=== PATIENT | female | born 1955 | race Caucasian/White ===

== ENCOUNTER → 2016-05-22 | Outpatient (CLI) | payer BC ==
[2016-05-22 16:31] LABS: CHLORIDE,CL 107 mmol/L (98-110); SODIUM,NA 140 mmol/L (136-146)
== END | disposition home or self-care (01) ==
LOC: MW.CHIM 15:50
PROVIDERS: ATTEND Internal Medicine
DX: E11.65 Type 2 diabetes mellitus with hyperglycemia (principal); I10 Essential (primary) hypertension; E78.5 Hyperlipidemia, unspecified
CPT/HCPCS: 36415; 80053; 80061; 82044; 83036; 84439; 84443; 85025

== ENCOUNTER 2017-10-01 08:50 | Emergency (ER) | payer BC ==
[2017-10-01] MEDS ORDERED: Sodium Chloride 0.9% 2.5 ML Syringe FLUSH PRN (08:57)
[2017-10-01] MEDS ORDERED: Sodium Chloride 0.9% 10 ML Syringe FLUSH PRN (08:57)
--- NOTE | 2017-10-01 08:59 | EDM.PDOC ---
ED HPI GENERAL MEDICAL PROBLEM - General Chief Complaint: General Stated Complaint: PT HASN'T BEEN ABLE TO WALK FOR THE PASTTHREE DAYS Time Seen by Provider: 10/01/17 08:56 - History of Present Illness INITIAL COMMENTS - FREE TEXT/NARRATIVE: HISTORY AND PHYSICAL: History of present illness: The patient is a 61-year-old female who follows in our clinics and has a history of diabetes for which she uses both oral hypoglycemics and insulin, as well as depression and anxiety for which she takes Zoloft and presents with with progressive weakness and inability to get around for the last 3 days and anorexia and poor by mouth intake. According to the and the patient she recently lost her mother and was out for at least 48 hours straight with her mother as she was dying and then proceeded to be involved with arrangements and other family commitments. According to the she hasn't slept more than a small amount in the last 3 days and she has had very little by mouth intake or hydration. He says that she has had 2 falls last evening due to progressive weakness but she did not pass out and he was right there to assist her. The patient says she did not pass out or black out and has no head neck or back pain and no extremity complaints. She says she is nauseated and has no appetite but has no abdominal pain. She's had no diarrhea no cough no chest pain or shortness of breath and no documented fevers at home but she did feel hot and thought she might have a temperature. The patient is not taking any medications at home. When the tells nursing that she can't walk it' s because of a global weakness not because of muscle or bone issues. He says that she can't even support herself and it is difficult for him to even get her to sit up and move around. He was concerned about her blood sugar because she has not been eating and she is still been taking her medications intermittently. It is not totally clear if she has been compliant with her meds. The patient has no other medical history and denies any discomfort muscle aches or pains or other systemic issues. Patient denies any suicidal ideation Review of systems: As per history of present illness and below otherwise all systems reviewed and negative. Past medical history: As per history of present illness and as reviewed below otherwise noncontributory. Surgical history: As per history of present illness and as reviewed below otherwise noncontributory. Social history: No reported history of drug or alcohol abuse. Family history: As per history of present illness and as reviewed below otherwise noncontributory. Physical exam: General: Well-developed well-nourished female who is nontoxic and speaks softly and with minimal answers all my evaluation. Majority of the history is from the as the patient is not very forthcoming about what has been going on. Her effect is very flat and intermittently she will smile. Vital signs are noted by me HEENT: Atraumatic, normocephalic, pupils reactive, negative for conjunctival pallor or scleral icterus, mucous membranes very dry throat clear, neck supple, nontender, trachea midline. There are no midline step-offs in his defects of the cervical spine and there are no palpable bony deformities or defects of the skull and no facial swelling is seen Lungs: Clear to auscultation but some bronchial breath sounds and crackles at the right base, breath sounds equal bilaterally, chest nontender. There is no wheezing or stridor and there are no palpable deformities of the chest wall or visual defects Heart: S1S2, regular rhythm slightly tachycardic rate of my evaluation Abdomen: Soft, nondistended, nontender. Negative for masses or hepatosplenomegaly. Negative for costovertebral tenderness. Pelvis: Stable nontender. No lateral hip tenderness Genitourinary: Deferred. Rectal: Deferred. Extremities: Atraumatic except for a very small abrasion at the left elbow and a very small abrasion at the lateral right knee without any surrounding soft tissue swelling ecchymosis or palpable bony deformities. The legs are, negative for cords or calf pain. Neurovascular unremarkable. Neuro: Awake, alert, oriented. Cranial nerves II through XII unremarkable. Cerebellum unremarkable.sensory unremarkable throughout. Exam nonfocal. Motor overall has global weakness with a 4/5 and a poor effort. Patient was able to transfer but needed assistance. Back: There are no midline step-offs tenderness defects of the thoracic or lumbar spine no posterior rib or pelvis tenderness and no visual evidence of any trauma Skin: Turgor is overall diminished but there are no rashes or lesions and no visible evidence of any trauma such as ecchymosis abrasions or erythema are seen from head to toe Diagnostics: Accu-Chek EKG CBC CMP UA hemoglobin A1c amylase and lipase TSH magnesium level serum ketones lactic acid CPK blood culture 2 urine culture CXR Therapeutics: IV O2 monitor IV fluids Zofran Tylenol In reviewing the computer the patient was last seen in the clinic with Dr. Van in May of this year and had a hemoglobin A1c of 6.8 1030: Patient is sitting up in bed and moving around. She has more energy in her face and the also states she is more interested and taking ice chips which she has already had a small cup of. She now has accepted a popsicle and is eating it. I'm continuing to monitor her testing results and we'll discuss all results with her and when available 1150: Patient continues to feel much improved and all testing results have been reviewed with the patient and at bedside. She is aware of the bump in her white blood cell count and that we have sent cultures of blood and urine and that she has a UTI. She also aware of her dehydration. Tells me that now she can relax and take care of herself and she is feeling that she can do that and move forward. She has tolerated fluids here. I will give her a dose of antibiotics here, she requested oral not IV meds here so she can go home. I will also give her prescription for home and advised her to monitor temperature and use Tylenol or ibuprofen for that. Advised her to follow-up with her provider in the clinic to reevaluate the symptoms and reasons to return. I have also told her to connect with her provider that she works with for her depression and anxiety so that she can address recent events; states that he feels comfortable taking her home Impression: Generalized weakness, dehydration, UTI, leukocytosis, generalized malaise and depression Definitive disposition and diagnosis as appropriate pending reevaluation and review of above. Generalized Pain Score (Numeric/FACES): 4 - Related Data Allergies Allergy/AdvReac Type Severity Reaction Status Date / Time No Known Allergies Allergy Verified 10/01/17 08:58 Home Meds: Home Meds Glimepiride [Amaryl] 4 mg PO BID 08/15/15 [History] Insulin Detemir [Levemir Flextouch] 30 units SUBCUT BEDTIME 08/15/15 [History] Sertraline HCl 100 mg PO DAILY 08/15/15 [History] metFORMIN HCl [Metformin HCl] 1 mg PO BIDMEALS 08/15/15 [History] Dulaglutide [Trulicity] 1.5 mg SQ WEEKLY 10/01/17 [History] Empagliflozin [Jardiance] 1 tab PO QAM 10/01/17 [History] Lisinopril 1 tab PO DAILY 10/01/17 [History] Past Medical History HEENT History: Reports: None Cardiovascular History: Reports: High Cholesterol Other Cardiovascular History: hx of htn, off meds now Respiratory History: Reports: None Gastrointestinal History: Reports: Colon Polyp, GERD Genitourinary History: Reports: None [employer] History: Reports: None Musculoskeletal History: Reports: None Neurological History: Reports: None Psychiatric History: Reports: Anxiety, Depression Endocrine/Metabolic History: Reports: Diabetes, Type II, Obesity/BMI 30+ Other Endocrine/Metabolic History: on insulin Hematologic History: Reports: None Immunologic History: Reports: None Oncologic (Cancer) History: Reports: Basal Cell Carcinoma Other Oncologic History: on thigh Dermatologic History: Reports: None - Past Surgical History Head Surgeries/Procedures: Reports: None HEENT Surgical History: Reports: None Cardiovascular Surgical History: Reports: None Respiratory Surgical History: Reports: None GI Surgical History: Reports: Appendectomy, Colonoscopy Female Surgical History: Reports: None Endocrine Surgical History: Reports: None Neurological Surgical History: Reports: None Musculoskeletal Surgical History: Reports: None Oncologic Surgical History: Reports: None Dermatological Surgical History: Reports: None ED ROS GENERAL - Review of Systems Review Of Systems: ROS reveals no pertinent complaints other than HPI. ED EXAM, GENERAL - Physical Exam Exam: See Below (see dictation) Course - Vital Signs Last Recorded V/S: Last Vital Signs Temp 37.1 C 10/01/17 10:39 Pulse 116 H 10/01/17 09:02 Resp 16 10/01/17 09:02 BP 134/75 10/01/17 09:02 Pulse Ox 96 10/01/17 09:02 - Orders/Labs/Meds Orders: Active Orders 24 hr Category Date Time Status Blood Glucose Check, Bedside [RC] ONETIME Care 10/01/17 08:57 Active Cardiac Monitoring [RC] . DIRECTED Care 10/01/17 08:57 Active EKG Documentation Completion [RC] STAT Care 10/01/17 08:57 Active Oxygen Therapy, ED [RC] ASDIRECTED Care 10/01/17 08:56 Active Pulse Oximetry [RC] ASDIRECTED Care 10/01/17 08:57 Active Chest 2V [CR] Stat Exams 10/01/17 10:38 Taken CULTURE BLOOD [BC] Stat Lab 10/01/17 10:50 Received CULTURE BLOOD [BC] Stat Lab 10/01/17 11:19 Received CULTURE URINE [RM] Stat Lab 10/01/17 10:15 Received UA W/MICROSCOPIC [URIN] Stat Lab 10/01/17 10:15 Ordered Sodium Chloride 0.9% [Saline Flush] Med 10/01/17 08:57 Active 10 ml FLUSH ASDIRECTED PRN Sodium Chloride 0.9% [Saline Flush] Med 10/01/17 08:57 Active 2.5 ml FLUSH ASDIRECTED PRN Blood Culture x2 Reflex Set [OM.PC] Stat Oth 10/01/17 10:18 Ordered Saline Lock Insert [OM.PC] Stat Oth 10/01/17 08:56 Ordered Medication Orders Sodium Chloride (Saline Flush) 10 ml FLUSH ASDIRECTED PRN PRN Reason: Keep Vein Open Sodium Chloride (Saline Flush) 2.5 ml FLUSH ASDIRECTED PRN PRN Reason: Keep Vein Open Labs: Laboratory Tests 10/01/17 10/01/17 10/01/17 Range/Units 08:57 09:05 09:05 WBC 16.45 H (4.0-11.0) K/uL RBC 5.44 (4.30-5.90) M/uL Hgb 16.0 (12.0-16.0) g/dL Hct 47.4 H (36.0-46.0) % MCV 87.1 (80.0-98.0) fL MCH 29.4 (27.0-32.0) pg MCHC 33.8 (31.0-37.0) g/dL RDW Std Deviation 43.5 (28.0-62.0) fl RDW Coeff of Roland 14 (11.0-15.0) % Plt Count 196 (150-400) K/uL MPV 10.90 (7.40-12.00) fL Add Manual Diff YES Neutrophils % (Manual) 69 (48.0-80.0) % Band Neutrophils % 1 % Lymphocytes % (Manual) 18 (16.0-40.0) % Monocytes % (Manual) 12 (0.0-15.0) % Nucleated RBC % 0.0 /100WBC Absolute Seg Neuts 11.4 H (1.4-5.7) Band Neutrophils # 0.2 Lymphocytes # (Manual) 3.0 H (0.6-2.4) Monocytes # (Manual) 2.0 H (0.0-0.8) Nucleated RBCs # 0 K/uL Lactate (0.20-2.00) mmol/L Sodium 134 L (136-145) mmol/L Potassium 4.2 (3.5-5.1) mmol/L Chloride 96 L (98-107) mmol/L Carbon Dioxide 24.2 (21.0-32.0) mmol/L BUN 25 H (7.0-18.0) mg/dL Creatinine 1.5 H (0.6-1.0) mg/dL Est Cr Clr Drug Dosing TNP Estimated GFR (MDRD) 35.5 ml/min Glucose 293 H (74-106) mg/dL POC Glucose 271 H (60-110) mg/dL Hemoglobin A1c (4.5-6.2) % Calcium 8.7 (8.5-10.1) mg/dL Magnesium (1.8-2.4) mg/dL Total Bilirubin 1.0 (0.2-1.0) mg/dL AST 30 (15-37) IU/L ALT 28 (14-63) IU/L Alkaline Phosphatase 53 (46-116) U/L Creatine Kinase (26-308) U/L Total Protein 7.5 (6.4-8.2) g/dL Albumin 3.3 L (3.4-5.0) g/dL Globulin 4.2 H (2.0-3.5) g/dL Albumin/Globulin Ratio 0.8 L (1.3-2.8) Amylase (25-115) U/L Lipase (73-393) U/L TSH 3rd Generation (0.36-3.74) uIU/mL Urine Color Urine Appearance Urine pH (5.0-8.0) Ur Specific Hel[place] (1.001-1.035) Urine Protein (NEGATIVE) mg/dL Urine Glucose (UA) (NEGATIVE) mg/dL Urine Ketones (NEGATIVE) mg/dL Urine Occult Blood (NEGATIVE) Urine Nitrite (NEGATIVE) Urine Bilirubin (NEGATIVE) Urine Urobilinogen (<2.0) EU/dL Ur Leukocyte Esterase (NEGATIVE) Urine RBC (0-2/HPF) Urine WBC (0-5/HPF) Ur Epithelial Cells (NONE-FEW) Urine Bacteria (NEGATIVE) Ethyl Alcohol mg/dL Ketones (NEG) 10/01/17 10/01/17 10/01/17 Range/Units 09:05 09:05 09:05 WBC (4.0-11.0) K/uL RBC (4.30-5.90) M/uL Hgb (12.0-16.0) g/dL Hct (36.0-46.0) % MCV (80.0-98.0) fL MCH (27.0-32.0) pg MCHC (31.0-37.0) g/dL RDW Std Deviation (28.0-62.0) fl RDW Coeff of Roland (11.0-15.0) % Plt Count (150-400) K/uL MPV (7.40-12.00) fL Add Manual Diff Neutrophils % (Manual) (48.0-80.0) % Band Neutrophils % % Lymphocytes % (Manual) (16.0-40.0) % Monocytes % (Manual) (0.0-15.0) % Nucleated RBC % /100WBC Absolute Seg Neuts (1.4-5.7) Band Neutrophils # Lymphocytes # (Manual) (0.6-2.4) Monocytes # (Manual) (0.0-0.8) Nucleated RBCs # K/uL Lactate (0.20-2.00) mmol/L Sodium (136-145) mmol/L Potassium (3.5-5.1) mmol/L Chloride (98-107) mmol/L Carbon Dioxide (21.0-32.0) mmol/L BUN (7.0-18.0) mg/dL Creatinine (0.6-1.0) mg/dL Est Cr Clr Drug Dosing Estimated GFR (MDRD) ml/min Glucose (74-106) mg/dL POC Glucose (60-110) mg/dL Hemoglobin A1c 6.7 H (4.5-6.2) % Calcium (8.5-10.1) mg/dL Magnesium 1.9 (1.8-2.4) mg/dL Total Bilirubin (0.2-1.0) mg/dL AST (15-37) IU/L ALT (14-63) IU/L Alkaline Phosphatase (46-116) U/L Creatine Kinase (26-308) U/L Total Protein (6.4-8.2) g/dL Albumin (3.4-5.0) g/dL Globulin (2.0-3.5) g/dL Albumin/Globulin Ratio (1.3-2.8) Amylase 59 (25-115) U/L Lipase 380 (73-393) U/L TSH 3rd Generation 0.54 (0.36-3.74) uIU/mL Urine Color Urine Appearance Urine pH (5.0-8.0) Ur Specific Hel[place] (1.001-1.035) Urine Protein (NEGATIVE) mg/dL Urine Glucose (UA) (NEGATIVE) mg/dL Urine Ketones (NEGATIVE) mg/dL Urine Occult Blood (NEGATIVE) Urine Nitrite (NEGATIVE) Urine Bilirubin (NEGATIVE) Urine Urobilinogen (<2.0) EU/dL Ur Leukocyte Esterase (NEGATIVE) Urine RBC (0-2/HPF) Urine WBC (0-5/HPF) Ur Epithelial Cells (NONE-FEW) Urine Bacteria (NEGATIVE) Ethyl Alcohol <3 mg/dL Ketones NEGATIVE (NEG) 10/01/17 10/01/17 10/01/17 Range/Units 09:24 09:33 10:15 WBC (4.0-11.0) K/uL RBC (4.30-5.90) M/uL Hgb (12.0-16.0) g/dL Hct (36.0-46.0) % MCV (80.0-98.0) fL MCH (27.0-32.0) pg MCHC (31.0-37.0) g/dL RDW Std Deviation (28.0-62.0) fl RDW Coeff of Roland (11.0-15.0) % Plt Count (150-400) K/uL MPV (7.40-12.00) fL Add Manual Diff Neutrophils % (Manual) (48.0-80.0) % Band Neutrophils % % Lymphocytes % (Manual) (16.0-40.0) % Monocytes % (Manual) (0.0-15.0) % Nucleated RBC % /100WBC Absolute Seg Neuts (1.4-5.7) Band Neutrophils # Lymphocytes # (Manual) (0.6-2.4) Monocytes # (Manual) (0.0-0.8) Nucleated RBCs # K/uL Lactate 1.7 (0.20-2.00) mmol/L Sodium (136-145) mmol/L Potassium (3.5-5.1) mmol/L Chloride (98-107) mmol/L Carbon Dioxide (21.0-32.0) mmol/L BUN (7.0-18.0) mg/dL Creatinine (0.6-1.0) mg/dL Est Cr Clr Drug Dosing Estimated GFR (MDRD) ml/min Glucose (74-106) mg/dL POC Glucose (60-110) mg/dL Hemoglobin A1c (4.5-6.2) % Calcium (8.5-10.1) mg/dL Magnesium (1.8-2.4) mg/dL Total Bilirubin (0.2-1.0) mg/dL AST (15-37) IU/L ALT (14-63) IU/L Alkaline Phosphatase (46-116) U/L Creatine Kinase 144 (26-308) U/L Total Protein (6.4-8.2) g/dL Albumin (3.4-5.0) g/dL Globulin (2.0-3.5) g/dL Albumin/Globulin Ratio (1.3-2.8) Amylase (25-115) U/L Lipase (73-393) U/L TSH 3rd Generation (0.36-3.74) uIU/mL Urine Color YELLOW Urine Appearance SLT CLOUDY Urine pH 5.5 (5.0-8.0) Ur Specific Hel[place] 1.025 (1.001-1.035) Urine Protein 100 (NEGATIVE) mg/dL Urine Glucose (UA) >=1000 (NEGATIVE) mg/dL Urine Ketones 15 H (NEGATIVE) mg/dL Urine Occult Blood MODERATE (NEGATIVE) Urine Nitrite NEGATIVE (NEGATIVE) Urine Bilirubin NEGATIVE (NEGATIVE) Urine Urobilinogen 0.2 (<2.0) EU/dL Ur Leukocyte Esterase NEGATIVE (NEGATIVE) Urine RBC 0-2 (0-2/HPF) Urine WBC 2-4 (0-5/HPF) Ur Epithelial Cells FEW (NONE-FEW) Urine Bacteria 4+ H (NEGATIVE) Ethyl Alcohol mg/dL Ketones (NEG) Meds: Medications Generic Name Dose Route Start Last Admin Trade Name Freq PRN Reason Stop Dose Admin Sodium Chloride 10 ml 10/01/17 08:57 Saline Flush FLUSH ASDIRECTED PRN Keep Vein Open Sodium Chloride 2.5 ml 10/01/17 08:57 Saline Flush FLUSH ASDIRECTED PRN Keep Vein Open Discontinued Medications Generic Name Dose Route Start Last Admin Trade Name Freq PRN Reason Stop Dose Admin Acetaminophen 650 mg 10/01/17 09:18 10/01/17 09:25 Tylenol PO 10/01/17 09:19 650 mg NOW ONE Administration Sodium Chloride 1,000 mls @ 999 mls/hr 10/01/17 09:17 10/01/17 09:30 Normal Saline IV 10/01/17 10:17 999 mls/hr STAT ONE Administration Sodium Chloride 1,000 mls @ 999 mls/hr 10/01/17 10:33 10/01/17 10:36 Normal Saline IV 10/01/17 11:33 999 mls/hr STAT ONE Administration Ondansetron HCl 4 mg 10/01/17 09:17 10/01/17 09:30 Zofran IVPUSH 10/01/17 09:18 4 mg ONETIME ONE Administration Departure - Departure Time of Disposition: 12:07 Disposition: Home, Self-Care 01 Condition: Good Clinical Impression: UTI, Urinary tract infectious disease, Generalized weakness, Dehydration Leukocytosis Qualifiers: Leukocytosis type: unspecified Qualified Code(s): D72.829 - Elevated white blood cell count, unspecified - Discharge Information Referrals: PCP,None [Primary Care Provider] - Forms: ED Department Discharge Additional Instructions: The following information is given to patients seen in the emergency department who are being discharged to home. This information is to outline your options for follow-up care. We provide all patients seen in our emergency department with a follow-up referral. The need for follow-up, as well as the timing and circumstances, are variable depending upon the specifics of your emergency department visit. If you don't have a primary care physician on staff, we will provide you with a referral. We always advise you to contact your personal physician following an emergency department visit to inform them of the circumstance of the visit and for follow-up with them and/or the need for any referrals to a consulting specialist. The emergency department will also refer you to a specialist when appropriate. This referral assures that you have the opportunity for followup care with a specialist. All of these measure are taken in an effort to provide you with optimal care, which includes your followup. Under all circumstances we always encourage you to contact your private physician who remains a resource for coordinating your care. When calling for followup care, please make the office aware that this follow-up is from your recent emergency room visit. If for any reason you are refused follow-up, please contact the [facility] emergency department at and ask to speak to the emergency department charge nurse. [facility] Primary care- Internal Medicine and Family [facility] [address] Please try to push hydration and small bites of food and take antibiotics until they're finished. Monitor your temperature and give medications Tylenol/ ibuprofen for any temperatures 100.5 or higher. Please call and schedule a follow-up with your provider to reevaluate today symptoms and to also discuss recent events. Return to ER as needed and as discussed - My Orders Last 24 Hours: My Active Orders 10/01/17 08:56 Oxygen Therapy, ED [RC] ASDIRECTED Saline Lock Insert [OM.PC] Stat 10/01/17 08:57 Blood Glucose Check, Bedside [RC] ONETIME Cardiac Monitoring [RC] . DIRECTED EKG Documentation Completion [RC] STAT Pulse Oximetry [RC] ASDIRECTED Sodium Chloride 0.9% [Saline Flush] 10 ml FLUSH ASDIRECTED PRN Sodium Chloride 0.9% [Saline Flush] 2.5 ml FLUSH ASDIRECTED PRN 10/01/17 10:15 CULTURE URINE [RM] Stat UA W/MICROSCOPIC [URIN] Stat 10/01/17 10:18 Blood Culture x2 Reflex Set [OM.PC] Stat 10/01/17 10:38 Chest 2V [CR] Stat 10/01/17 10:50 CULTURE BLOOD [BC] Stat 10/01/17 11:19 CULTURE BLOOD [BC] Stat - Assessment/Plan Last 24 Hours: My Active Orders 10/01/17 08:56 Oxygen Therapy, ED [RC] ASDIRECTED Saline Lock Insert [OM.PC] Stat 10/01/17 08:57 Blood Glucose Check, Bedside [RC] ONETIME Cardiac Monitoring [RC] . DIRECTED EKG Documentation Completion [RC] STAT Pulse Oximetry [RC] ASDIRECTED Sodium Chloride 0.9% [Saline Flush] 10 ml FLUSH ASDIRECTED PRN Sodium Chloride 0.9% [Saline Flush] 2.5 ml FLUSH ASDIRECTED PRN 10/01/17 10:15 CULTURE URINE [RM] Stat UA W/MICROSCOPIC [URIN] Stat 10/01/17 10:18 Blood Culture x2 Reflex Set [OM.PC] Stat 10/01/17 10:38 Chest 2V [CR] Stat 10/01/17 10:50 CULTURE BLOOD [BC] Stat 10/01/17 11:19 CULTURE BLOOD [BC] Stat
[2017-10-01 09:07] VITALS: BP 134/75
[2017-10-01] MEDS ORDERED: Sodium Chloride 0.9% 1,000 ML IV ONE ×2 (09:17→10:33)
[2017-10-01] MEDS ORDERED: Ondansetron 4 MG/2 ML SDV IVPUSH ONE (09:17)
[2017-10-01] MEDS ORDERED: Acetaminophen 325 MG Tab PO ONE (09:18)
[2017-10-01 10:24] LABS: CHLORIDE,CL 96 mmol/L (98-107); SODIUM,NA 134 mmol/L (136-145)
[2017-10-01] MEDS ORDERED: Ciprofloxacin 500 MG Tab PO ONE (12:09)
--- NOTE | 2017-10-02 18:52 | CR ---
EXAM DATE: 10/01/17 PATIENT'S AGE: 61 Patient: NELSON NEWELL Facility: [place], [place] Site . Site : [id number] Study: XRay Chest [id number]/[id number] 11:05:01 AM Ordering Physician: Maame Huerta Final Report: Indication: Chest pain and shortness of breath Technique: PA and lateral (2) views of the chest. Comparison: None available Findings: Normal heart and mediastinum. Lungs and pleural spaces clear. No acute or aggressive osseous abnormality. Impression: Normal chest radiograph. Dictated by Servando La MD @ Oct 01 2017 11:26AM (Electronic Signature) Report Signed by Proxy. CECIL
== END 2017-10-01 12:20 | disposition home or self-care (01) ==
LOC: MW.ED 08:50
DX: N39.0 Urinary tract infection, site not specified (principal); R53.1 Weakness; E86.0 Dehydration; D72.829 Elevated white blood cell count, unspecified; E11.9 Type 2 diabetes mellitus without complications; E78.00 Pure hypercholesterolemia, unspecified; K21.9 Gastro-esophageal reflux disease without esophagitis; F32.9 Major depressive disorder, single episode, unspecified; F41.9 Anxiety disorder, unspecified; Z79.4 Long term (current) use of insulin
CPT/HCPCS: 36415; 71046; 80053; 81001; 82009; 82150; 82550; 82962; 83036; 83605; 83690; 83735; 84443; 85025; 87040; 87086; 87088; 87186; 93005; 96361; 96374; 99285; A9270; G0480; J2405; J7040

== ENCOUNTER 2017-10-03 20:33 | Observation (INO) | payer BC ==
--- NOTE | 2017-10-03 20:52 | EDM.PDOC ---
ED HPI GENERAL MEDICAL PROBLEM - General Chief Complaint: General Stated Complaint: DEHYDRATED Time Seen by Provider: 10/03/17 20:45 - History of Present Illness INITIAL COMMENTS - FREE TEXT/NARRATIVE: HISTORY AND PHYSICAL: History of present illness: Patient's a 61-year-old white female who was seen several days prior for dehydration and exhaustion she was diagnosed also with UTI at that time she recently lost her mother and had a protracted care. With her mother prior to her and has had very little sleep or oral intake over the last 2-3 days with the and related arrangements. Review of systems: As per history of present illness and below otherwise all systems reviewed and negative. Past medical history: As per history of present illness and as reviewed below otherwise noncontributory. Surgical history: As per history of present illness and as reviewed below otherwise noncontributory. Social history: No reported history of drug or alcohol abuse. Family history: As per history of present illness and as reviewed below otherwise noncontributory. Physical exam: HEENT: Atraumatic, normocephalic, pupils reactive, negative for conjunctival pallor or scleral icterus, mucous membranes dry, throat clear, neck supple, nontender, trachea midline. Lungs: Clear to auscultation, breath sounds equal bilaterally, chest nontender. Heart: S1S2, regular, negative for clicks, rubs, or JVD. Abdomen: Soft, nondistended, nontender. Negative for masses or hepatosplenomegaly. Negative for costovertebral tenderness. Pelvis: Stable nontender. Genitourinary: Deferred. Rectal: Deferred. Extremities: Atraumatic, negative for cords or calf pain. Neurovascular unremarkable. Neuro: Awake, alert, oriented. Cranial nerves II through XII unremarkable. Cerebellum unremarkable. Motor and sensory unremarkable throughout. Exam nonfocal. Diagnostics: CBC CMP UA Therapeutics: Saline 2 L bolus Impression: #1 dehydration #2 medical screening exam #3 history of UTI Definitive disposition and diagnosis as appropriate pending reevaluation and review of above. body Pain Score (Numeric/FACES): 9 - Related Data Allergies Allergy/AdvReac Type Severity Reaction Status Date / Time No Known Allergies Allergy Verified 10/03/17 20:44 Home Meds: Home Meds Glimepiride [Amaryl] 4 mg PO BID 08/15/15 [History] Insulin Detemir [Levemir Flextouch] 30 units SUBCUT BEDTIME 08/15/15 [History] Sertraline HCl 100 mg PO DAILY 08/15/15 [History] metFORMIN HCl [Metformin HCl] 1 gm PO BIDMEALS 08/15/15 [History] Dulaglutide [Trulicity] 1.5 mg SQ WEEKLY 10/01/17 [History] Empagliflozin [Jardiance] 1 tab PO QAM 10/01/17 [History] Lisinopril 1 tab PO DAILY 10/01/17 [History] Past Medical History HEENT History: Reports: None Cardiovascular History: Reports: High Cholesterol, Hypertension Other Cardiovascular History: hx of htn, off meds now Respiratory History: Reports: None Gastrointestinal History: Reports: Colon Polyp, GERD Genitourinary History: Reports: None BILLING CLERK History: Reports: None Musculoskeletal History: Reports: None Neurological History: Reports: None Psychiatric History: Reports: Anxiety, Depression Endocrine/Metabolic History: Reports: Diabetes, Type II, Obesity/BMI 30+ Other Endocrine/Metabolic History: on insulin Hematologic History: Reports: None Immunologic History: Reports: None Oncologic (Cancer) History: Reports: Basal Cell Carcinoma Other Oncologic History: on thigh Dermatologic History: Reports: None - Past Surgical History Head Surgeries/Procedures: Reports: None HEENT Surgical History: Reports: None Cardiovascular Surgical History: Reports: None Respiratory Surgical History: Reports: None GI Surgical History: Reports: Appendectomy, Colonoscopy Female Surgical History: Reports: None Endocrine Surgical History: Reports: None Neurological Surgical History: Reports: None Musculoskeletal Surgical History: Reports: None Oncologic Surgical History: Reports: None Dermatological Surgical History: Reports: None Social & Family History - Family History Family Medical History: Noncontributory - Tobacco Use Smoking Status *Q: Never Smoker - Recreational Drug Use Recreational Drug Use: No ED ROS GENERAL - Review of Systems Review Of Systems: ROS reveals no pertinent complaints other than HPI. ED EXAM, GENERAL - Physical Exam Exam: See Below (See dictation) Course - Vital Signs Last Recorded V/S: Last Vital Signs Temp 36.9 C 10/03/17 20:33 Pulse 93 10/03/17 20:33 Resp 18 10/03/17 20:33 BP 121/59 L 10/03/17 20:33 Pulse Ox 100 10/03/17 20:33 - Orders/Labs/Meds Orders: Active Orders 24 hr Category Date Time Status UA W/MICROSCOPIC [URIN] Stat Lab 10/03/17 21:40 Ordered Sodium Chloride 0.9% [Normal Saline] 2,000 ml Med 10/03/17 20:53 Active IV STAT Medication Orders Sodium Chloride (Normal Saline) 2,000 mls @ 999 mls/hr IV STAT ONE Stop: 10/03/17 22:53 Last Admin: 10/03/17 21:05 Dose: 999 mls/hr Labs: Laboratory Tests 10/03/17 10/03/17 10/03/17 Range/Units 20:50 20:50 21:40 WBC 7.85 (4.0-11.0) K/uL RBC 4.75 (4.30-5.90) M/uL Hgb 13.9 (12.0-16.0) g/dL Hct 41.3 (36.0-46.0) % MCV 86.9 (80.0-98.0) fL MCH 29.3 (27.0-32.0) pg MCHC 33.7 (31.0-37.0) g/dL RDW Std Deviation 43.1 (28.0-62.0) fl RDW Coeff of Roland 14 (11.0-15.0) % Plt Count 196 (150-400) K/uL MPV 11.30 (7.40-12.00) fL Neut % (Auto) 68.8 (48.0-80.0) % Lymph % (Auto) 20.3 (16.0-40.0) % [place] % (Auto) 9.4 (0.0-15.0) % Eos % (Auto) 1.1 (0.0-7.0) % Baso % (Auto) 0.4 (0.0-1.5) % Neut # (Auto) 5.4 (1.4-5.7) K/uL Lymph # (Auto) 1.6 (0.6-2.4) K/uL [place] # (Auto) 0.7 (0.0-0.8) K/uL Eos # (Auto) 0.1 (0.0-0.7) K/uL Baso # (Auto) 0.0 (0.0-0.1) K/uL Nucleated RBC % 0.0 /100WBC Nucleated RBCs # 0 K/uL Sodium 138 (136-145) mmol/L Potassium 3.6 (3.5-5.1) mmol/L Chloride 103 (98-107) mmol/L Carbon Dioxide 26.4 (21.0-32.0) mmol/L BUN 12 (7.0-18.0) mg/dL Creatinine 1.1 H (0.6-1.0) mg/dL Est Cr Clr Drug Dosing TNP Estimated GFR (MDRD) 50.8 ml/min Glucose 297 H (74-106) mg/dL Calcium 9.4 (8.5-10.1) mg/dL Total Bilirubin 0.4 (0.2-1.0) mg/dL AST 13 L (15-37) IU/L ALT 28 (14-63) IU/L Alkaline Phosphatase 57 (46-116) U/L Total Protein 6.9 (6.4-8.2) g/dL Albumin 3.0 L (3.4-5.0) g/dL Globulin 3.9 H (2.0-3.5) g/dL Albumin/Globulin Ratio 0.8 L (1.3-2.8) Urine Color YELLOW Urine Appearance CLEAR Urine pH 6.0 (5.0-8.0) Ur Specific [place] 1.025 (1.001-1.035) Urine Protein NEGATIVE (NEGATIVE) mg/dL Urine Glucose (UA) >=1000 (NEGATIVE) mg/dL Urine Ketones NEGATIVE (NEGATIVE) mg/dL Urine Occult Blood NEGATIVE (NEGATIVE) Urine Nitrite NEGATIVE (NEGATIVE) Urine Bilirubin NEGATIVE (NEGATIVE) Urine Urobilinogen 0.2 (<2.0) EU/dL Ur Leukocyte Esterase NEGATIVE (NEGATIVE) Urine RBC 0-1 (0-2/HPF) Urine WBC 0-2 (0-5/HPF) Ur Epithelial Cells MODERATE (NONE-FEW) Urine Bacteria RARE (NEGATIVE) Urine Mucus LIGHT (NONE-MOD) Meds: Medications Generic Name Dose Route Start Last Admin Trade Name Freq PRN Reason Stop Dose Admin Sodium Chloride 2,000 mls @ 999 mls/hr 10/03/17 20:53 10/03/17 21:05 Normal Saline IV 10/03/17 22:53 999 mls/hr STAT ONE Administration Discontinued Medications Generic Name Dose Route Start Last Admin Trade Name Freq PRN Reason Stop Dose Admin Lorazepam 1 mg 08/25/18 20:53 10/03/17 21:04 Ativan IVPUSH 10/03/17 20:54 1 mg ONETIME ONE Administration Departure - Departure Time of Disposition: 20:51 Disposition: Home, Self-Care 01 Condition: Good Clinical Impression: Dehydration, History of UTI, Encounter for medical screening examination - Discharge Information *PRESCRIPTION DRUG MONITORING PROGRAM REVIEWED*: Not Applicable *COPY OF PRESCRIPTION DRUG MONITORING REPORT IN PATIENT DAVID: Not Applicable Referrals: Jaya Van MD [Primary Care Provider] - Forms: ED Department Discharge Additional Instructions: The following information is given to patients seen in the emergency department who are being discharged to home. This information is to outline your options for follow-up care. We provide all patients seen in our emergency department with a follow-up referral. The need for follow-up, as well as the timing and circumstances, are variable depending upon the specifics of your emergency department visit. If you don't have a primary care physician on staff, we will provide you with a referral. We always advise you to contact your personal physician following an emergency department visit to inform them of the circumstance of the visit and for follow-up with them and/or the need for any referrals to a consulting specialist. The emergency department will also refer you to a specialist when appropriate. This referral assures that you have the opportunity for followup care with a specialist. All of these measure are taken in an effort to provide you with optimal care, which includes your followup. Under all circumstances we always encourage you to contact your private physician who remains a resource for coordinating your care. When calling for followup care, please make the office aware that this follow-up is from your recent emergency room visit. If for any reason you are refused follow-up, please contact the [facility] emergency department at and asked to speak to the emergency department charge nurse. Push fluids follow-up private medical doctor as needed as discussed return as needed as discussed - My Orders Last 24 Hours: My Active Orders 10/03/17 20:53 Sodium Chloride 0.9% [Normal Saline] 2,000 ml IV STAT 10/03/17 21:40 UA W/MICROSCOPIC [URIN] Stat - Assessment/Plan Last 24 Hours: My Active Orders 10/03/17 20:53 Sodium Chloride 0.9% [Normal Saline] 2,000 ml IV STAT 10/03/17 21:40 UA W/MICROSCOPIC [URIN] Stat
[2017-10-03] MEDS ORDERED: LORazepam 2 MG/ML SDV IVPUSH ONE (20:53)
[2017-10-03] MEDS ORDERED: Sodium Chloride 0.9% 2,000 ML IV ONE (20:53)
[2017-10-03 21:32] LABS: CHLORIDE,CL 103 mmol/L (98-107); SODIUM,NA 138 mmol/L (136-145)
[2017-10-03] MEDS ORDERED: Acetaminophen 325 MG Tab PO PRN (23:45)
[2017-10-03] MEDS: Sertraline 25 MG Tab PO SCH ×2 (23:51→23:57)
[2017-10-03] MEDS: Acetaminophen/HYDROcodone 325-5 MG Tab PO PRN (23:57)
[2017-10-04 06:59] LABS: CHLORIDE,CL 106 mmol/L (98-107); SODIUM,NA 140 mmol/L (136-145)
[2017-10-04] MEDS: Acetaminophen/HYDROcodone 325-5 MG Tab PO PRN ×2 (07:19→09:45)
[2017-10-04] MEDS: Insulin Aspart 100 Units/ML 3 ML Pen SUBCUT SCH ×2 (07:20→13:59)
[2017-10-04] MEDS ORDERED: Lisinopril 5 MG Tab PO SCH (09:35)
[2017-10-04] MEDS ORDERED: Sertraline 100 MG Tab PO SCH (09:45)
[2017-10-04 12:21] VITALS: BP 150/66
[2017-10-04] MEDS ORDERED: Dexamethasone 10 MG/ML SDV IVPUSH ONE (13:49)
[2017-10-04] MEDS ORDERED: Aspirin 325 MG Tab.EC PO ONE (13:50)
--- NOTE | 2017-10-04 15:37 | PCM.HP ---
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 Patient says that her mom had her 5 days ago , and she went to a lot of stress the days prior to her and also after she . Patient says that she had poor oral intake, also she vomited. She was able to walk without any cane or walker, but since she has progressive weakness in her legs especially on the right leg , and she started using the cane initially and later she used the walker. Currently patient is able to stand but her legs are pretty shaky and she fell twice at home. She said that her right leg is always weaker after she had the surgery in 2015. She complains of double vision and her says that for the past 3 days her eyes are crossed . She was also seen in emergency room on where she was given IV fluids and after the patient was discharged home. She denies any back pain , no pain in the legs, denies numbness in the extremities or face , no headache, no facial droop, no problems with speech Duration of Symptoms: Reports: Day(s): Location: Reports: Lower Extremity, Left, Lower Extremity, Right body Pain Score (Numeric/FACES): 8 - Related Data Allergies/Adverse Reactions: Allergies Allergy/AdvReac Type Severity Reaction Status Date / Time No Known Allergies Allergy Verified 10/03/17 20:44 Home Medications: Home Meds Glimepiride [Amaryl] 4 mg PO BID 08/15/15 [History] Insulin Detemir [Levemir Flextouch] 20 units SUBCUT BEDTIME 08/15/15 [History] Sertraline HCl 100 mg PO DAILY 08/15/15 [History] metFORMIN HCl [Metformin HCl] 1 gm PO BIDMEALS 08/15/15 [History] Dulaglutide [Trulicity] 1.5 mg SQ WEEKLY 10/01/17 [History] Empagliflozin [Jardiance] 1 tab PO DAILY 10/01/17 [History] Lisinopril 1 tab PO DAILY 10/01/17 [History] Past Medical History HEENT History: Reports: None Cardiovascular History: Reports: High Cholesterol, Hypertension Other Cardiovascular History: hx of htn, off meds now Respiratory History: Reports: None Gastrointestinal History: Reports: Colon Polyp, GERD Genitourinary History: Reports: None [employer] History: Reports: None Musculoskeletal History: Reports: None Neurological History: Reports: None Psychiatric History: Reports: Anxiety, Depression Endocrine/Metabolic History: Reports: Diabetes, Type II, Obesity/BMI 30+ Other Endocrine/Metabolic History: on insulin Hematologic History: Reports: None Immunologic History: Reports: None Oncologic (Cancer) History: Reports: Basal Cell Carcinoma Other Oncologic History: on thigh Dermatologic History: Reports: None - Past Surgical History Head Surgeries/Procedures: Reports: None HEENT Surgical History: Reports: None Cardiovascular Surgical History: Reports: None Respiratory Surgical History: Reports: None GI Surgical History: Reports: Appendectomy, Colonoscopy Female Surgical History: Reports: None Endocrine Surgical History: Reports: None Neurological Surgical History: Reports: None Musculoskeletal Surgical History: Reports: None Oncologic Surgical History: Reports: None Dermatological Surgical History: Reports: None Social & Family History - Family History Family Medical History: Noncontributory - Tobacco Use Smoking Status *Q: Never Smoker Second Hand Smoke Exposure: No - Caffeine Use Caffeine Use: Reports: Coffee - Recreational Drug Use Recreational Drug Use: No H&P Review of Systems - Review of Systems: Review Of Systems: See Below General: Reports: No Symptoms, Malaise, Weakness HEENT: Reports: Other (double vision) Pulmonary: Reports: No Symptoms Cardiovascular: Reports: No Symptoms Gastrointestinal: Reports: No Symptoms Genitourinary: Reports: No Symptoms Skin: Reports: No Symptoms Psychiatric: Reports: No Symptoms Neurological: Reports: Pre-Existing Deficit, Tingling, Tremors, Difficulty Walking, Weakness, Gait Disturbance. Denies: Headache, Numbness, Paresthesia, Seizure, Syncope, Trouble Speaking, Change in Speech Hematologic/Lymphatic: Reports: No Symptoms Immunologic: Reports: No Symptoms Exam - Exam Exam: See Below - Vital Signs Vital Signs: Last Vital Signs Temp 96.8 F 10/04/17 11:00 Pulse 75 10/04/17 11:00 Resp 16 10/04/17 11:00 BP 150/66 H 10/04/17 11:00 Pulse Ox 95 10/04/17 11:00 Weight: 178 lb 9.191 oz - Exam General: Alert HEENT: Conjunctiva Clear Neck: Supple, Trachea Midline Lungs: Clear to Auscultation Cardiovascular: Regular Rate, Regular Rhythm, Normal S1, Normal S2 GI/Abdominal Exam: Normal Bowel Sounds, Soft, Non-Tender, No Organomegaly Back Exam: Normal Inspection. No: Vertebral Tenderness Extremities: No Pedal Edema Skin: Warm, Dry, Intact Neurological: Cranial Nerves Intact, Normal Speech, Focal Deficit, Hyporeflexia , Abnormal Gait. No: Reflexes Equal Bilateral, Strength Equal Bilateral, Normal Gait, Normal Tone Neuro Extensive - Mental Status: Alert, Oriented x3, Normal Mood/Affect, Normal Cognition Neuro Extensive - Motor, Sensory, Reflexes: CN II-XII Intact DTR: 0: Patella (L), Patella (R) Psychiatric: Alert, Depressed - Patient Data Lab Results Last 24 hrs: Laboratory Results - last 24 hr 10/03/17 10/03/17 10/03/17 Range/Units 20:50 20:50 21:40 WBC 7.85 (4.0-11.0) K/uL RBC 4.75 (4.30-5.90) M/uL Hgb 13.9 (12.0-16.0) g/dL Hct 41.3 (36.0-46.0) % MCV 86.9 (80.0-98.0) fL MCH 29.3 (27.0-32.0) pg MCHC 33.7 (31.0-37.0) g/dL RDW Std Deviation 43.1 (28.0-62.0) fl RDW Coeff of Roland 14 (11.0-15.0) % Plt Count 196 (150-400) K/uL MPV 11.30 (7.40-12.00) fL Neut % (Auto) 68.8 (48.0-80.0) % Lymph % (Auto) 20.3 (16.0-40.0) % [place] % (Auto) 9.4 (0.0-15.0) % Eos % (Auto) 1.1 (0.0-7.0) % Baso % (Auto) 0.4 (0.0-1.5) % Neut # (Auto) 5.4 (1.4-5.7) K/uL Lymph # (Auto) 1.6 (0.6-2.4) K/uL [place] # (Auto) 0.7 (0.0-0.8) K/uL Eos # (Auto) 0.1 (0.0-0.7) K/uL Baso # (Auto) 0.0 (0.0-0.1) K/uL Nucleated RBC % 0.0 /100WBC Nucleated RBCs # 0 K/uL Sodium 138 (136-145) mmol/L Potassium 3.6 (3.5-5.1) mmol/L Chloride 103 (98-107) mmol/L Carbon Dioxide 26.4 (21.0-32.0) mmol/L BUN 12 (7.0-18.0) mg/dL Creatinine 1.1 H (0.6-1.0) mg/dL Est Cr Clr Drug Dosing TNP Estimated GFR (MDRD) 50.8 ml/min Glucose 297 H (74-106) mg/dL POC Glucose (60-110) mg/dL Hemoglobin A1c (4.5-6.2) % Calcium 9.4 (8.5-10.1) mg/dL Total Bilirubin 0.4 (0.2-1.0) mg/dL AST 13 L (15-37) IU/L ALT 28 (14-63) IU/L Alkaline Phosphatase 57 (46-116) U/L Total Protein 6.9 (6.4-8.2) g/dL Albumin 3.0 L (3.4-5.0) g/dL Globulin 3.9 H (2.0-3.5) g/dL Albumin/Globulin Ratio 0.8 L (1.3-2.8) Vitamin B12 (193-986) pg/mL TSH 3rd Generation (0.36-3.74) uIU/mL Urine Color YELLOW Urine Appearance CLEAR Urine pH 6.0 (5.0-8.0) Ur Specific [place] 1.025 (1.001-1.035) Urine Protein NEGATIVE (NEGATIVE) mg/dL Urine Glucose (UA) >=1000 (NEGATIVE) mg/dL Urine Ketones NEGATIVE (NEGATIVE) mg/dL Urine Occult Blood NEGATIVE (NEGATIVE) Urine Nitrite NEGATIVE (NEGATIVE) Urine Bilirubin NEGATIVE (NEGATIVE) Urine Urobilinogen 0.2 (<2.0) EU/dL Ur Leukocyte Esterase NEGATIVE (NEGATIVE) Urine RBC 0-1 (0-2/HPF) Urine WBC 0-2 (0-5/HPF) Ur Epithelial Cells MODERATE (NONE-FEW) Urine Bacteria RARE (NEGATIVE) Urine Mucus LIGHT (NONE-MOD) 10/04/17 10/04/17 10/04/17 Range/Units 05:45 05:45 05:45 WBC 7.73 (4.0-11.0) K/uL RBC 4.19 L (4.30-5.90) M/uL Hgb 12.1 (12.0-16.0) g/dL Hct 36.8 (36.0-46.0) % MCV 87.8 (80.0-98.0) fL MCH 28.9 (27.0-32.0) pg MCHC 32.9 (31.0-37.0) g/dL RDW Std Deviation 43.5 (28.0-62.0) fl RDW Coeff of Roland 14 (11.0-15.0) % Plt Count 189 (150-400) K/uL MPV 11.00 (7.40-12.00) fL Neut % (Auto) 65.8 (48.0-80.0) % Lymph % (Auto) 24.8 (16.0-40.0) % [place] % (Auto) 7.8 (0.0-15.0) % Eos % (Auto) 1.2 (0.0-7.0) % Baso % (Auto) 0.4 (0.0-1.5) % Neut # (Auto) 5.1 (1.4-5.7) K/uL Lymph # (Auto) 1.9 (0.6-2.4) K/uL [place] # (Auto) 0.6 (0.0-0.8) K/uL Eos # (Auto) 0.1 (0.0-0.7) K/uL Baso # (Auto) 0.0 (0.0-0.1) K/uL Nucleated RBC % 0.0 /100WBC Nucleated RBCs # 0 K/uL Sodium 140 (136-145) mmol/L Potassium 4.2 (3.5-5.1) mmol/L Chloride 106 (98-107) mmol/L Carbon Dioxide 27.8 (21.0-32.0) mmol/L BUN 9 (7.0-18.0) mg/dL Creatinine 0.8 (0.6-1.0) mg/dL Est Cr Clr Drug Dosing 70.88 Estimated GFR (MDRD) > 60.0 ml/min Glucose 192 H (74-106) mg/dL POC Glucose (60-110) mg/dL Hemoglobin A1c 7.2 H (4.5-6.2) % Calcium 8.1 L (8.5-10.1) mg/dL Total Bilirubin 0.4 (0.2-1.0) mg/dL AST 15 (15-37) IU/L ALT 21 (14-63) IU/L Alkaline Phosphatase 54 (46-116) U/L Total Protein 5.6 L (6.4-8.2) g/dL Albumin 2.5 L (3.4-5.0) g/dL Globulin 3.1 (2.0-3.5) g/dL Albumin/Globulin Ratio 0.8 L (1.3-2.8) Vitamin B12 845 (193-986) pg/mL TSH 3rd Generation 1.95 (0.36-3.74) uIU/mL Urine Color Urine Appearance Urine pH (5.0-8.0) Ur Specific [place] (1.001-1.035) Urine Protein (NEGATIVE) mg/dL Urine Glucose (UA) (NEGATIVE) mg/dL Urine Ketones (NEGATIVE) mg/dL Urine Occult Blood (NEGATIVE) Urine Nitrite (NEGATIVE) Urine Bilirubin (NEGATIVE) Urine Urobilinogen (<2.0) EU/dL Ur Leukocyte Esterase (NEGATIVE) Urine RBC (0-2/HPF) Urine WBC (0-5/HPF) Ur Epithelial Cells (NONE-FEW) Urine Bacteria (NEGATIVE) Urine Mucus (NONE-MOD) 10/04/17 Range/Units 06:33 WBC (4.0-11.0) K/uL RBC (4.30-5.90) M/uL Hgb (12.0-16.0) g/dL Hct (36.0-46.0) % MCV (80.0-98.0) fL MCH (27.0-32.0) pg MCHC (31.0-37.0) g/dL RDW Std Deviation (28.0-62.0) fl RDW Coeff of Roland (11.0-15.0) % Plt Count (150-400) K/uL MPV (7.40-12.00) fL Neut % (Auto) (48.0-80.0) % Lymph % (Auto) (16.0-40.0) % [place] % (Auto) (0.0-15.0) % Eos % (Auto) (0.0-7.0) % Baso % (Auto) (0.0-1.5) % Neut # (Auto) (1.4-5.7) K/uL Lymph # (Auto) (0.6-2.4) K/uL [place] # (Auto) (0.0-0.8) K/uL Eos # (Auto) (0.0-0.7) K/uL Baso # (Auto) (0.0-0.1) K/uL Nucleated RBC % /100WBC Nucleated RBCs # K/uL Sodium (136-145) mmol/L Potassium (3.5-5.1) mmol/L Chloride (98-107) mmol/L Carbon Dioxide (21.0-32.0) mmol/L BUN (7.0-18.0) mg/dL Creatinine (0.6-1.0) mg/dL Est Cr Clr Drug Dosing Estimated GFR (MDRD) ml/min Glucose (74-106) mg/dL POC Glucose 189 H (60-110) mg/dL Hemoglobin A1c (4.5-6.2) % Calcium (8.5-10.1) mg/dL Total Bilirubin (0.2-1.0) mg/dL AST (15-37) IU/L ALT (14-63) IU/L Alkaline Phosphatase (46-116) U/L Total Protein (6.4-8.2) g/dL Albumin (3.4-5.0) g/dL Globulin (2.0-3.5) g/dL Albumin/Globulin Ratio (1.3-2.8) Vitamin B12 (193-986) pg/mL TSH 3rd Generation (0.36-3.74) uIU/mL Urine Color Urine Appearance Urine pH (5.0-8.0) Ur Specific [place] (1.001-1.035) Urine Protein (NEGATIVE) mg/dL Urine Glucose (UA) (NEGATIVE) mg/dL Urine Ketones (NEGATIVE) mg/dL Urine Occult Blood (NEGATIVE) Urine Nitrite (NEGATIVE) Urine Bilirubin (NEGATIVE) Urine Urobilinogen (<2.0) EU/dL Ur Leukocyte Esterase (NEGATIVE) Urine RBC (0-2/HPF) Urine WBC (0-5/HPF) Ur Epithelial Cells (NONE-FEW) Urine Bacteria (NEGATIVE) Urine Mucus (NONE-MOD) Result Diagrams: 10/04/17 05:45 10/04/17 05:45 EKG INTERPRETATION Rhythm: NSR - Problem List (1) Leg weakness, bilateral SNOMED Code(s): 1180548 ICD Code: R29.898 - OTH SYMPTOMS AND SIGNS INVOLVING THE MUSCULOSKELETAL SYSTEM Status: Acute (2) Strabismus SNOMED Code(s): 05623230 ICD Code: H50.9 - UNSPECIFIED STRABISMUS Status: Acute (3) Double vision SNOMED Code(s): 20486244 ICD Code: H53.2 - DIPLOPIA Status: Acute (4) Lumbar herniated disc SNOMED Code(s): 748724163 ICD Code: M51.26 - OTHER INTERVERTEBRAL DISC DISPLACEMENT, LUMBAR REGION Status: Acute (5) Diabetes mellitus SNOMED Code(s): 53945444 ICD Code: E11.9 - TYPE 2 DIABETES MELLITUS WITHOUT COMPLICATIONS Status: Acute Qualifiers: Diabetes mellitus type: type 2 (6) Hypertension SNOMED Code(s): 51923448 ICD Code: I10 - ESSENTIAL (PRIMARY) HYPERTENSION Status: Acute (7) Hyperlipidemia SNOMED Code(s): 04362519 ICD Code: E78.5 - HYPERLIPIDEMIA, UNSPECIFIED Status: Acute (8) Depression SNOMED Code(s): 32543688 ICD Code: F32.9 - MAJOR DEPRESSIVE DISORDER, SINGLE EPISODE, UNSPECIFIED Status: Acute Problem List Initiated/Reviewed/Updated: Yes Orders Last 24hrs: Active Orders 24 hr Category Date Time Status Patient Status [ADT] Stat ADT 10/03/17 22:18 Active Blood Glucose Check, Bedside [RC] QIDACANDBED Care 10/04/17 01:12 Active Neuro Check [RC] Q2HR Care 10/04/17 11:11 Active Ready for Discharge [RC] PER UNIT ROUTINE Care 10/04/17 13:57 Active Vital Signs [RC] Q4H Care 10/04/17 01:06 Active Consult to Occupational Therapy [OT Evaluation and Cons 10/04/17 03:07 Active Treatment] [CONS] Routine Consult to Physical Therapy [PT Evaluation and Cons 10/04/17 03:06 Active Treatment] [CONS] Routine ADA Diabetic [[place] [employer] Diet] [DIET Diet 10/04/17 Breakfast Active ] Head wo Cont [CT] Stat Exams 10/04/17 10:50 Taken Knee 3V Bi [CR] Stat Exams 10/04/17 11:35 Taken Lumbar Spine wo Cont [CT] Stat Exams 10/04/17 11:32 Taken UA W/MICROSCOPIC [URIN] Stat Lab 10/03/17 21:40 Ordered Acetaminophen [Tylenol] Med 10/03/17 23:45 Active 650 mg PO Q6H PRN Acetaminophen/HYDROcodone [[place] 325-5 MG] Med 10/03/17 23:45 Active 1 tab PO Q4H PRN Insulin Aspart [NovoLOG] Med 10/04/17 07:30 Active See Protocol SUBCUT TIDAC Insulin Detemir [Levemir] Med 10/04/17 21:00 Active 20 unit SUBCUT BEDTIME Lisinopril [Prinivil] Med 10/04/17 09:35 Active 5 mg PO DAILY Sertraline [Zoloft] Med 10/04/17 09:45 Active 100 mg PO DAILY Code Status [Resuscitation Status] Routine Resus Stat 10/04/17 09:34 Ordered Medication Orders Acetaminophen (Tylenol) 650 mg PO Q6H PRN PRN Reason: Pain Hydrocodone Bitart/Acetaminophen ([place] 325-5 Mg) 1 tab PO Q4H PRN PRN Reason: Pain Last Admin: 10/04/17 09:45 Dose: 1 tab Admin: 10/04/17 07:19 Dose: 1 tab Admin: 10/03/17 23:57 Dose: 1 tab Insulin Aspart (Novolog) 0 unit SUBCUT TIDAC PAULINE; Protocol Last Admin: 10/04/17 13:59 Dose: 2 units Admin: 10/04/17 07:20 Dose: 2 units Insulin Detemir (Levemir) 20 unit SUBCUT BEDTIME PAULINE Lisinopril (Prinivil) 5 mg PO DAILY PAULINE Last Admin: 10/04/17 09:44 Dose: 5 mg Sertraline HCl (Zoloft) 100 mg PO DAILY PAULINE Last Admin: 10/04/17 09:44 Dose: [address] head - negative Ct lumbar showed multiple facet arthropathy , L3 disc herniation with mild central stenosis Patient was given aspirin 325 mg po one dose , and atorvastatin 40 mg po one dose , passed bedside swallowing evaluation She was told she needs to be transferred to Have MRI of the brain and MRI lumbar and MRI can not be done here in the week end Patient wanted to be transferred to [facility]. For DM - oral medications were held and she was continued with insulin Detmir 20 units sq at bedtime and insulin aspart on sliding scale AC and HS For depression she was continued with Sertraline 100 mg po daily Discharge summary: Patient was accepted by DR. Graves at [facility] , She was also given one dose of Dexametasone 10 mg iv . She received hydration 2L of fluid since she came in [place]. She was transferred to [place] via air ambulance.
[2017-10-04] MEDS ORDERED: Insulin Detemir 100 Units/ML 3 ML Pen SUBCUT SCH (21:00)
--- NOTE | 2017-10-05 14:40 | CT ---
EXAM DATE: 10/03/17 PATIENT'S AGE: 61 Patient: NELSON NEWELL Facility: [place], [place] Site . Site : 1955 Study: CT Head [id number]/26/2018 11:55:23 AM Ordering Physician: Bobbi Vivas Final Report: INDICATION: Pt is extremely weak. States it started about a week ago. CT SCAN HEAD WITHOUT CONTRAST TECHNIQUE: Direct axial non-contrast images of the head from foramen magnum to vertex are provided. FINDINGS: Axial images of the brain demonstrate a normal appearance of the ventricles, sulci and basal cistern. There is no evidence of intracranial hemorrhage, infarct, mass or mass effect. Albert-white differentiation is normal throughout. Visualized mastoid air cells and middle ear cavities are clear. The visualized paranasal sinuses are clear. The orbits are symmetric. Calvarium intact. CONCLUSION: Unremarkable unenhanced head CT. Please note that all CT scans at this facility use dose modulation, iterative reconstruction, and/or weight-based dosing when appropriate to reduce radiation dose to as low as reasonably achievable. Dictated by: Tanner Grigsby MD @ 10/04/2017 12:32:18 (Electronic Signature) Report Signed by Proxy. [facility] C[facility]
--- NOTE | 2017-10-05 14:41 | CT ---
EXAM DATE: 10/03/17 PATIENT'S AGE: 61 Patient: NELSON NEWELL Facility: [place], [place] Site . Site : 1955 Study: CT Spine Lumbar [id number]/26/2018 11:57:33 AM Ordering Physician: Bobbi Vivas Final Report: INDICATION: Lower extremity weakness. TECHNIQUE: Multi detector noncontrast images lumbar spine with axial, coronal and sagittal reformats. FINDINGS: No bone lesion or fracture. Facet arthrosis with osteophytes L4-5 greater than L5-S1. Mild chronic degenerative disc disease throughout the lumbar spine. Disk bulge and ligamentum flavum hypertrophy appears to mildly narrow the central canal at L3-4. Laminectomy changes at L4-5. Minimal degenerative subarticular sclerosis and anterior osteophytic spurring of the sacroiliac joints. Small parapelvic cysts of the kidneys. Paraspinal soft tissues and retroperitoneal visualized soft tissues otherwise unremarkable. IMPRESSION: 1. No acute fracture or traumatic malalignment. 2. Laminectomy L4-5. 3. Mild facet arthrosis L4-5 greater than L5-S1. 4. Degenerative disc disease with mild central canal narrowing suspected at L3- 4. MRI would better assess if there is clinical concern. Please note that all CT scans at this facility use dose modulation, iterative reconstruction, and/or weight-based dosing when appropriate to reduce radiation dose to as low as reasonably achievable. Dictated by Tanner Grigsby MD @ Oct 04 2017 12:36PM (Electronic Signature) Report Signed by Proxy. CECIL
--- NOTE | 2017-10-05 14:42 | CR ---
EXAM DATE: 10/03/17 PATIENT'S AGE: 61 Patient: NELSON NEWELL Facility: [place], [place] Site . Site : 1955 Study: XRay Knee Bilateral [id number]/26/2018 12:06:08 PM Ordering Physician: Bobbi Vivas Final Report: INDICATION: Pain and weakness. TECHNIQUE: Six views bilateral knees. IMPRESSION: Anatomic alignment. Minimal grade 1 osteoarthritis narrowing in the medial greater than lateral compartment bilaterally. Patellofemoral joint spaces appear maintained. No effusion. No bone lesion or fracture. Dictated by Tanner Grigsby MD @ Oct 04 2017 12:38PM (Electronic Signature) Report Signed by Proxy. CECIL
== END 2017-10-04 15:30 ==
LOC: MW.ED 20:33 → MW.MS 22:46
PROVIDERS: ADMIT Internal Medicine; ATTEND Internal Medicine
DX: M48.061 Spinal stenosis, lumbar region without neurogenic claudication (principal); M47.896 Other spondylosis, lumbar region; M51.26 Other intervertebral disc displacement, lumbar region; E11.9 Type 2 diabetes mellitus without complications; I10 Essential (primary) hypertension; F32.9 Major depressive disorder, single episode, unspecified; H50.9 Unspecified strabismus; H53.2 Diplopia; M17.0 Bilateral primary osteoarthritis of knee; E66.9 Obesity, unspecified; F41.9 Anxiety disorder, unspecified; E78.00 Pure hypercholesterolemia, unspecified; K21.9 Gastro-esophageal reflux disease without esophagitis; Z79.4 Long term (current) use of insulin; Z79.899 Other long term (current) drug therapy
CPT/HCPCS: 36415; 70450; 72131; 73562; 80053; 81001; 82607; 82962; 83036; 84443; 85025; 96361; 96374; 99285; A9270; J1100; J1815; J2060; J7040; 96375; G0378

== ENCOUNTER 2022-07-08 10:01 | Emergency (ER) | payer BC ==
[2022-07-08] MEDS ORDERED: Sodium Chloride 0.9% 2.5 ML Syringe FLUSH PRN (10:46)
[2022-07-08] MEDS ORDERED: Sodium Chloride 0.9% 10 ML Syringe FLUSH PRN (10:46)
[2022-07-08 11:15] LABS: INR 0.96 (0.86-1.11)
[2022-07-08 11:29] LABS: A/G RATIO 0.9 (0.9-1.6); ALBUMIN 3.4 g/dL (3.4-5.0); BILIRUBIN TOTAL 0.5 mg/dL (0.2-1.0); CALCIUM 8.9 mg/dL (8.5-10.1); CARBON DIOXIDE,CO2 26.7 mmol/L (21.0-32.0); CREATININE 0.8 mg/dL (0.6-1.0); EST CRCL DRUG DOSING (CG) 66.51 mL/min; POTASSIUM,K 4.7 mmol/L (3.5-5.1); PROTEIN TOTAL,TP 7.4 g/dL (6.4-8.2)
[2022-07-08 11:51] LABS: BASOPHILS ABSOLUTE AUTO 0.1 K/uL (0.0-0.1); BASOPHILS PERCENT AUTO 0.5 % (0.0-1.5); EOSINOPHILS ABSOLUTE AUTO 0.1 K/uL (0.0-0.7); EOSINOPHILS PERCENT AUTO 0.8 % (0.0-7.0); HEMATOCRIT 48.5 % (36.0-46.0); HEMOGLOBIN 15.9 g/dL (12.0-16.0); LYMPHOCYTES ABSOLUTE AUTO 3.1 K/uL (0.6-2.4); LYMPHOCYTES PERCENT AUTO 27.8 % (16.0-40.0); MEAN CORPUSCULAR HEMOGLOBIN 29.3 pg (27.0-32.0); MEAN CORPUSCULAR HGB CONC 32.8 g/dL (31.0-37.0); MEAN CORPUSCULAR VOLUME 89.3 fL (80.0-98.0); MONOCYTES ABSOLUTE AUTO 0.9 K/uL (0.0-0.8); MONOCYTES PERCENT AUTO 7.8 % (0.0-15.0); NEUTROPHILS ABSOLUTE AUTO 6.9 K/uL (1.4-5.7); NEUTROPHILS PERCENT AUTO 63.1 % (48.0-80.0); PLATELET COUNT,PLT 238 K/uL (150-400); RED BLOOD CELL COUNT 5.43 M/uL (4.30-5.90); WHITE BLOOD CELL COUNT,WBC 10.99 K/uL (4.0-11.0)
[2022-07-08] MEDS ORDERED: Iopamidol 755 MG/ML 500 ML Multipack Bottle IVPUSH STA (16:58)
[2022-07-09 01:43] VITALS: BP 152/100; PULSE 91
== END 2022-07-08 19:47 ==
LOC: MW.ED 10:01
DX: H53.2 Diplopia (principal); R27.0 Ataxia, unspecified; I10 Essential (primary) hypertension; E11.9 Type 2 diabetes mellitus without complications; E66.9 Obesity, unspecified; Z68.25 Body mass index [BMI] 25.0-25.9, adult; Z79.4 Long term (current) use of insulin; Z79.899 Other long term (current) drug therapy
CPT/HCPCS: 36415; 70450; 70496; 70498; 80053; 85025; 85610; 93005; 99285; J3490; Q9967